=== PATIENT | male | born 1980 | race Two or more races ===

== ENCOUNTER 2019-01-04 11:21 | Inpatient (IN) | payer SELFPAY ==
--- NOTE | 2019-01-04 12:06 | ER Document Report ---
ED Medical Screen (RME) - General Chief Complaint: Abdominal Pain Stated Complaint: ABDOMINAL PAIN Time Seen by Provider: 01/04/19 11:57 Mode of Arrival: Ambulatory Information source: Patient Notes: 38-year-old male presented to ED for complaint of abdominal pain upper abdominal pain. He went to a recent visit with the doctor and they told him there was something wrong with his body and he needed to come to the emergency room. He states he thinks that his pancreas. He states when he drinks water sometimes the pain is like a pressure sometimes is much sharper sometimes it comes and go es. He states right now it is a stabbing pain. He states right now it is a 3 out of 5. Patient states he drinks 1 beer that is the equivalent of 3 each afternoon. Does not smoke for the last 2 months he states he has not had any illicit drugs for about 3 months. 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 A comprehensive ED assessment and evaluation of the patient, analysis of test results and completion of medical decision making process will be conducted by an additional ED providers. Past Medical History - Social History Chew tobacco use (# tins/day): No Frequency of alcohol use: None Drug Abuse: None Physical Exam - Vital signs Vitals: Temp Pulse Resp BP Pulse Ox 98.3 F 123 H 16 125/82 96 01/04/19 11:29 01/04/19 11:29 01/04/19 11:29 01/04/19 11:29 01/04/19 11:29 Course - Vital Signs Vital signs: Temp Pulse Resp BP Pulse Ox 98.3 F 123 H 16 125/82 96 01/04/19 11:29 01/04/19 11:29 01/04/19 11:29 01/04/19 11:29 01/04/19 11:29
[2019-01-04 13:01] LABS: HEMATOCRIT 42.8 % (37.9-51.0)
[2019-01-04 13:05] LABS: APPEARANCE,URINE CLEAR; BILIRUBIN,URINE NEGATIVE (NEGATIVE); COLOR,URINE YELLOW; GLUCOSE, URINE >=500 mg/dL (NEGATIVE); KETONES,URINE 20 mg/dL (NEGATIVE); PROTEIN,URINE 30 mg/dL (NEGATIVE); URINE SPECIFIC GRAVITY 1.031; UROBILINOGEN,URINE NEGATIVE mg/dL (<2.0)
[2019-01-04 13:07] LABS: HEMOGLOBIN 14.7 g/dL (13.5-17.0); MEAN CORPUSCULAR HEMOGLOBIN 34.3 pg (27.0-33.4); MEAN CORPUSCULAR HGB CONC 34.3 g/dL (32.0-36.0); MEAN CORPUSCULAR VOLUME 100 fl (80-97); PLATELET COUNT 122 10^3/uL (150-450); RED BLOOD COUNT 4.28 10^6/uL (4.35-5.55); RED CELL DISTRIBUTION WIDTH 14.3 % (11.5-14.0); WHITE BLOOD COUNT 16.8 10^3/uL (4.0-10.5)
[2019-01-04 13:20] LABS: ALBUMIN 3.5 g/dL (3.5-5.0); ALKALINE PHOSPHATASE 177 U/L (38-126); ANION GAP 14 (5-19); ASPARTATE AMINO TRANSFERASE 55 U/L (17-59); BILIRUBIN,DIRECT 1.4 mg/dL (0.0-0.4); BILIRUBIN,TOTAL 2.2 mg/dL (0.2-1.3); BLOOD UREA NITROGEN 11 mg/dL (7-20); CARBON DIOXIDE 26 mmol/L (22-30); CHLORIDE 91 mmol/L (98-107); POTASSIUM 4.1 mmol/L (3.6-5.0); URINE AMPHETAMINES SCREEN NEGATIVE; URINE BARBITURATES SCREEN NEGATIVE; URINE BENZODIAZEPINES SCREEN NEGATIVE; URINE COCAINE SCREEN NEGATIVE; URINE MARIJUANA (THC) SCREEN NEGATIVE; URINE METHADONE SCREEN NEGATIVE; URINE PHENCYCLIDINE SCREEN NEGATIVE
[2019-01-04 13:33] LABS: CALCIUM 6.6 mg/dL (8.4-10.2); GLUCOSE 601 mg/dL (75-110)
[2019-01-04 13:35] LABS: ABSOLUTE LYMPHOCYTES# (MANUAL) 2.2 10^3/uL (0.5-4.7); ABSOLUTE MONOCYTES # (MANUAL) 0.3 10^3/uL (0.1-1.4); BAND NEUTROPHILS % (MANUAL) 2 % (3-5); BASOPHILS % (MANUAL) 0 % (0-2); EOSINOPHILS % (MANUAL) 0 % (0-6); LYMPHOCYTES % (MANUAL) 13 % (13-45); MONOCYTES % (MANUAL) 2 % (3-13); SEGMENTED NEUTROPHILS % (MAN) 83 % (42-78); TOTAL CELLS COUNTED 100
[2019-01-04 13:36] LABS: ANISOCYTOSIS SLIGHT; PLATELET COMMENT DECREASED; PLATELET LARGE PRESENT; POLYCHROMASIA SLIGHT; TOXIC VACUOLATION PRESENT
[2019-01-04 14:11] LABS: VENOUS BLOOD BASE EXCESS 1.9 mmol/L; VENOUS BLOOD PCO2 39.1 mmHg (35-63); VENOUS BLOOD PH 7.44 (7.30-7.42)
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
[2019-01-04] MEDS ORDERED: MORPHINE SULFATE 10 MG/ML INJ IV ONE (14:20)
[2019-01-04] MEDS ORDERED: ONDANSETRON HCL INJ/PF 4 MG/2 ML SDV IV ONE (14:20)
[2019-01-04] MEDS ORDERED: INSULIN REG, HUMAN 100 UNIT/ML 3 ML VIAL (PYX) IV ONE (14:23)
[2019-01-04] MEDS ORDERED: CALCIUM GLUCONATE 1000 MG/10 ML INJ IV ONE (14:23)
[2019-01-04] MEDS ORDERED: NORMAL SALINE 1000 ML 1,000 ML IV ONE (14:24)
--- NOTE | 2019-01-04 15:24 | RADIOLOGY REPORT (SQ) ---
EXAM DESCRIPTION: CT ABD/PELVIS WITH IV ONLY COMPLETED DATE/TIME: 01/04/2019 3:14 pm REASON FOR STUDY: abd pain COMPARISON: None. TECHNIQUE: CT scan of the abdomen and pelvis performed using helical scanning technique with dynamic intravenous contrast injection. No oral contrast. Images reviewed with lung, soft tissue, and bone windows. Reconstructed coronal and sagittal MPR images reviewed. Delayed images for evaluation of the urinary system also acquired. All images stored on PACS. All CT scanners at this facility use dose modulation, iterative reconstruction, and/or weight based d osing when appropriate to reduce radiation dose to as low as reasonably achievable (ALARA). [facility]: Dose Right [facility]: CareDose [facility]: Dose Right [facility]: Teradose 4D [facility]: Docurated CONTRAST TYPE AND DOSE: contrast/concentration: Isovue 350.00 mg/ml; Total Contrast Delivered: 89.0 ml; Total Saline Delivered: 70.0 ml RENAL FUNCTION: GFR > 60. RADIATION DOSE: CT Rad equipment meets quality standard of care and radiation dose reduction techniq ues were employed. CTDIvol: 7.1 - 10.0 mGy. DLP: 966 mGy-cm.. LIMITATIONS: None. FINDINGS: LOWER CHEST: No significant findings. No nodules or infiltrates. LIVER: Normal size. Fatty change. No masses. No dilated ducts. SPLEEN: Normal size. No focal lesions. PANCREAS: Extensive inflammation in the lesser sac surrounding the pancreas. No mass, pseudoaneurysm or ductal dilatation. No necrosis. GALLBLADDER: No identified stones by CT criteria. No inflammatory changes to suggest cholecystitis. ADRENAL GLANDS: No significant masses or asymmetry. RIGHT KIDNEY AND URETER: No solid masses. No significant calcifications. No hydronephrosis or hyd roureter. LEFT KIDNEY AND URETER: No solid masses. No significant calcifications. No hydronephrosis or hydr oureter. AORTA AND VESSELS: No aneurysm. No dissection. Renal arteries, SMA, celiac without stenosis. RETROPERITONEUM: No retroperitoneal adenopathy, hemorrhage or masses. BOWEL AND PERITONEAL CAVITY: No obstruction. Small amount of free fluid in the right pericolic gutte r. No free air. APPENDIX: Normal. PELVIS: No mass. No free fluid. Normal bladder. ABDOMINAL WALL: No masses. No hernias. BONES: No significant or acute findings. OTHER: No other significant finding. IMPRESSION: Acute pancreatitis. TECHNICAL DOCUMENTATION: JOB ID: [id number] Quality ID # [id number]: Final reports with documentation of one or more dose reduction techniques (e.g., Au tomated exposure control, adjustment of the mA and/or kV according to patient size, use of iterative reconstruction technique) 2010 [employer]- All Rights Reserved Reading location - IP/workstation name: [email or web address]-
--- NOTE | 2019-01-04 17:03 | RADIOLOGY REPORT (SQ) ---
EXAM DESCRIPTION: U/S ABDOMEN LIMITED W/O DOP COMPLETED DATE/TIME: 01/04/2019 4:13 pm REASON FOR STUDY: RUQ pain , elevated LFT's COMPARISON: None. TECHNIQUE: Dynamic and static grayscale images acquired of the abdomen and recorded on PACS. Leanno roberta selected color Doppler and spectral images recorded. LIMITATIONS: None. FINDINGS: PANCREAS: Known peripancreatic edema and fluid not well appreciated. LIVER: Hepatic steatosis. No focal lesions. Hepatomegaly. LIVER VASCULATURE: Normal directional flow of the main portal vein and hepatic veins. GALLBLADDER: Non dependent echogenic focus within the gallbladder lumen measuring 6 mm, possibly adhe rent stone versus polyp. No wall thickening. ULTRASOUND-DETECTED ACUÑA'S SIGN: Negative. INTRAHEPATIC DUCTS AND COMMON DUCT: CBD and intrahepatic ducts normal caliber. No filling defects. INFERIOR VENA CAVA: Normal flow. AORTA: No aneurysm. RIGHT KIDNEY: Normal size measuring 12.4 cm. Normal echogenicity. No solid or suspicious masses. No hydronephrosis. No calcifications. PERITONEAL AND RIGHT PLEURAL SPACE: No ascites or effusions. OTHER: No other significant findings. IMPRESSION: 1. Single non dependent echogenic focus within the gallbladder lumen measuring 6 mm, po ssibly adherent stone versus gallbladder polyp. No additional stones identified. No evidence of acu te cholecystitis. 2. Known peripancreatic edema not well appreciated. 3. Hepatomegaly and hepatic steatosis. TECHNICAL DOCUMENTATION: JOB ID: [id number] [employer]- All Rights Reserved Reading location - IP/workstation name: [email or web address]
[2019-01-04] MEDS ORDERED: DEXTROSE 50%-WATER 25 GM/50 ML DISP.SYRIN IV PRN ×2 (17:42)
[2019-01-04] MEDS ORDERED: ONDANSETRON HCL INJ/PF 4 MG/2 ML SDV IV PRN (17:42)
[2019-01-04] MEDS ORDERED: TEMAZEPAM 15 MG CAPSULE PO PRN (17:42)
[2019-01-04] MEDS ORDERED: ACETAMINOPHEN 650 MG SUPP.RECT PR PRN (17:42)
[2019-01-04] MEDS ORDERED: DEXTROSE 40% GEL 15 GM TUBE PO PRN ×2 (17:42)
[2019-01-04] MEDS ORDERED: GLUCAGON,HUMAN RECOMB 1 MG INJ SUBCUT PRN (17:42)
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
[2019-01-04] MEDS: NORMAL SALINE 1000 ML 1,000 ML IV PRN (18:30)
[2019-01-04] MEDS: INSULIN REG, HUMAN 100 UNIT/ML 3 ML VIAL (PYX) SUBCUT SCH (18:32)
[2019-01-04] MEDS: MORPHINE SULFATE 10 MG/ML INJ IV PRN ×2 (18:34→22:26)
[2019-01-04] MEDS: PANTOPRAZOLE SODIUM 40 MG VIAL IV SCH (22:25)
[2019-01-04] MEDS: HEPARIN SOD (PORCINE) 5,000 UNIT/ML 1 ML VIAL SUBCUT SCH (22:26)
[2019-01-05] MEDS: NORMAL SALINE 1000 ML 1,000 ML IV PRN ×4 (00:36→16:07)
[2019-01-05] MEDS: INSULIN REG, HUMAN 100 UNIT/ML 3 ML VIAL (PYX) SUBCUT SCH ×4 (00:36→19:09)
[2019-01-05] MEDS: ACETAMINOPHEN 325 MG TABLET PO PRN ×3 (00:36→20:42)
[2019-01-05] MEDS: MORPHINE SULFATE 10 MG/ML INJ IV PRN ×4 (04:20→20:43)
[2019-01-05] MEDS: HEPARIN SOD (PORCINE) 5,000 UNIT/ML 1 ML VIAL SUBCUT SCH ×3 (05:35→22:16)
[2019-01-05 06:17] LABS: ABSOLUTE BASOPHILS # (AUTO) 0.1 10^3/uL (0.0-0.2); ABSOLUTE EOSINOPHILS # (AUTO) 0.1 10^3/uL (0.0-0.6); ABSOLUTE LYMPHOCYTES (AUTO) 1.5 10^3/uL (0.5-4.7); BASOPHILS % (AUTO) 0.4 % (0-2); EOSINOPHILS % (AUTO) 1.1 % (0-6); HEMATOCRIT 34.9 % (37.9-51.0); LYMPHOCYTES % (AUTO) 11.9 % (13-45); MEAN CORPUSCULAR HEMOGLOBIN 33.8 pg (27.0-33.4); MEAN CORPUSCULAR HGB CONC 34.9 g/dL (32.0-36.0); MEAN CORPUSCULAR VOLUME 97 fl (80-97); MONOCYTES % (AUTO) 7.8 % (3-13); PLATELET COUNT 122 10^3/uL (150-450); RED CELL DISTRIBUTION WIDTH 14.1 % (11.5-14.0); SEGMENTED NEUTROPHILS % (AUTO) 78.8 % (42-78); TOTAL CELLS COUNTED % (AUTO) 100 %; WHITE BLOOD COUNT 12.7 10^3/uL (4.0-10.5)
[2019-01-05 06:20] LABS: HEMOGLOBIN 12.2 g/dL (13.5-17.0)
[2019-01-05 06:29] LABS: ANION GAP 10 (5-19); BLOOD UREA NITROGEN 12 mg/dL (7-20); CARBON DIOXIDE 24 mmol/L (22-30); CHLORIDE 104 mmol/L (98-107); CHOLESTEROL 290.33 mg/dL (0-200); GLUCOSE 196 mg/dL (75-110); POTASSIUM 3.5 mmol/L (3.6-5.0)
[2019-01-05 06:43] LABS: DIRECT LDL < 30 mg/dL (<100); TRIGLYCERIDES 1063 mg/dL (<150)
[2019-01-05 06:44] LABS: CALCIUM 6.6 mg/dL (8.4-10.2)
[2019-01-05] MEDS: PANTOPRAZOLE SODIUM 40 MG VIAL IV SCH ×2 (10:21→22:22)
--- NOTE | 2019-01-05 11:57 | PDOC PROGRESS REPORT ---
Subjective Progress Note for:: 01/05/19 Subjective:: The patient appears to be comfortable. He still reports some tenderness in the abdomen. We discussed the possibility of clear liquids. Reason For Visit: ACUTE PNCREATITIS,NEW ONSET DIABETES MELLITUS WITH Physical Exam Vital Signs: Temp Pulse Resp BP Pulse Ox 98.4 F 100 16 173/95 H 94 01/05/19 10:26 01/05/19 08:46 01/05/19 08:46 01/05/19 08:46 01/05/19 08:46 Intake & Output 01/04/19 01/05/19 01/06/19 06:59 06:59 05:59 Intake Total 3000 993 Output Total 150 Balance 2850 993 Weight 77.8 kg General appearance: PRESENT: cooperative, mild distress, well-developed Head exam: PRESENT: atraumatic, normocephalic Ear exam: PRESENT: normal external ear exam. ABSENT: bleeding, drainage Mouth exam: PRESENT: moist, neck supple, tongue midline Respiratory exam: PRESENT: clear to auscultation ella, symmetrical, unlabored. ABSENT: prolonged expiratory phas, rales, rhonchi, tachypnea, wheezes Cardiovascular exam: PRESENT: RRR, +S1, +S2. ABSENT: diastolic murmur, systolic murmur GI/Abdominal exam: PRESENT: hypoactive bowel sounds, soft, tenderness - Mostly in the midepigastric area. ABSENT: distended, guarding Rectal exam: PRESENT: deferred Gentrourinary exam: ABSENT: indwelling catheter Extremities exam: PRESENT: full ROM. ABSENT: joint swelling, pedal edema Musculoskeletal exam: PRESENT: full ROM, normal inspection. ABSENT: deformity Neurological exam: PRESENT: alert, awake, oriented to person, oriented to place, oriented to time, oriented to situation, CN II-XII grossly intact Psychiatric exam: PRESENT: appropriate affect. ABSENT: agitated, anxious Focused psych exam: ABSENT: delusional, restlessness Skin exam: PRESENT: dry, normal color, warm. ABSENT: rash Results Laboratory Results: 01/05/19 05:50 01/05/19 05:50 01/04/19 01/04/19 01/04/19 12:45 12:45 12:45 WBC 16.8 H RBC 4.28 L Hgb 14.7 Hct 42.8 MCV 100 H MCH 34.3 H MCHC 34.3 RDW 14.3 H Plt Count 122 L Seg Neutrophils % Not Reportable VBG pH VBG pCO2 VBG HCO3 VBG Base Excess Sodium 131.2 L Potassium 4.1 Chloride 91 L Carbon Dioxide 26 Anion Gap 14 BUN 11 Creatinine 0.70 Est GFR ( Amer) > 60 Glucose 601 H* Lactic Acid Calcium 6.6 L* Magnesium Total Bilirubin 2.2 H AST 55 Alkaline Phosphatase 177 H Total Protein 7.0 Albumin 3.5 Triglycerides Cholesterol LDL Cholesterol Direct HDL Cholesterol Lipase 737.1 H Urine Color YELLOW Urine Appearance CLEAR Urine pH 6.0 Ur Specific [place] 1.031 Urine Protein 30 H Urine Glucose (UA) >=500 H Urine Ketones 20 H Urine Blood SMALL H 01/04/19 01/04/19 01/05/19 13:50 14:35 05:50 WBC 12.7 H RBC 3.60 L Hgb 12.2 L D Hct 34.9 L MCV 97 MCH 33.8 H MCHC 34.9 RDW 14.1 H Plt Count 122 L Seg Neutrophils % 78.8 H VBG pH 7.44 H VBG pCO2 39.1 VBG HCO3 26.0 VBG Base Excess 1.9 Sodium Potassium Chloride Carbon Dioxide Anion Gap BUN Creatinine Est GFR ( Amer) Glucose Lactic Acid 1.4 Calcium Magnesium Total Bilirubin AST Alkaline Phosphatase Total Protein Albumin Triglycerides Cholesterol LDL Cholesterol Direct HDL Cholesterol Lipase Urine Color Urine Appearance Urine pH Ur Specific [place] Urine Protein Urine Glucose (UA) Urine Ketones Urine Blood 01/05/19 05:50 WBC RBC Hgb Hct MCV MCH MCHC RDW Plt Count Seg Neutrophils % VBG pH VBG pCO2 VBG HCO3 VBG Base Excess Sodium 138.0 Potassium 3.5 L Chloride 104 Carbon Dioxide 24 Anion Gap 10 BUN 12 Creatinine 0.49 L Est GFR ( Amer) > 60 Glucose 196 H Lactic Acid Calcium 6.6 L* Magnesium 2.3 Total Bilirubin AST Alkaline Phosphatase Total Protein Albumin Triglycerides 1063 H Cholesterol 290.33 H LDL Cholesterol Direct < 30 HDL Cholesterol 33 L Lipase 525.0 H Urine Color Urine Appearance Urine pH Ur Specific [place] Urine Protein Urine Glucose (UA) Urine Ketones Urine Blood Impressions: Abdomen/Pelvis CT 01/04/19 14:12 IMPRESSION: Acute pancreatitis. Abdomen Ultrasound 01/04/19 14:16 IMPRESSION: 1. Single non dependent echogenic focus within the gallbladder lumen measuring 6 mm, possibly adherent stone versus gallbladder polyp. No tamanna tional stones identified. No evidence of acute cholecystitis. 2. Known peripancreatic edema not well appreciated. 3. Hepatomegaly and hepatic steatosis. Assessment and Plan - Diagnosis (1) Acute pancreatitis Qualifiers: Pancreatitis type: alcohol induced Acute pancreatitis complication: unspecified Qualified Code(s): K85.20 - Alcohol induced acute pancreatitis without necrosis or infection Is this a current diagnosis for this admission?: Yes Plan: 01/04/2019-the lipase is greater than 700. The patient will be given aggressive IV fluids. He will be n.p.o. except ice chips. We will recheck laboratory studies in the morning. If he is improved consider initiating oral diet. January 05, 2019-lipase is improved. The patient's triglyceride levels were greater than 1000 and so this could be a combined etiology for his pancreatitis. Because he was still having discomfort I am going to let him have ice chips but nothing else by mouth. Continue aggressive IV fluids. (2) Diabetes mellitus, new onset Is this a current diagnosis for this admission?: Yes Plan: 01/04/2019-there is a strong family history of diabetes. The patient has never had been told he was diabetic. His glucose will be checked every 6 hours while he is n.p.o. When he starts eating we will change it to before meals and at bedtime. He will have a regular insulin sliding scale. He will need to follow- up with a primary care provider post discharge. We will need to have a regimen prior to discharge. We may utilize metformin as an initial medication. I have requested hemoglobin A1c as well as lipids. January 05, 2019-hemoglobin A1c was 13.4. We are achieving good control with the insulin regimen. I will likely start the patient on metformin as an outpatient but he will need to establish with a primary care provider (possibly community care clinic) for a regimen moving forward. (3) Hypocalcemia Is this a current diagnosis for this admission?: Yes Plan: 01/04/2019-the patient did receive calcium gluconate. We will recheck his serum calcium and supplement accordingly. January 05, 2019-even with IV calcium gluconate yesterday the patient still has a low calcium. I have ordered another gram of calcium gluconate. Recheck laboratory studies tomorrow as well. (4) Hyperbilirubinemia Is this a current diagnosis for this admission?: Yes Plan: 01/04/2019-no evidence of gallstones. No dilated biliary ducts. Will recheck bilirubin in the morning. I expect it will normalize quickly. January 05, 2019-I will recheck the bilirubin tomorrow. (5) Hyperosmolar hyponatremia Is this a current diagnosis for this admission?: Yes Plan: 01/04/2019-as glucose improves, and with normal saline by intravenous, sodium should correct. We will recheck in the morning. January 05, 2019-serum potassium is normal. Continue to monitor. (6) Fatty liver Is this a current diagnosis for this admission?: Yes Plan: 01/04/2019-Per the CT scan the patient has fatty infiltration of the liver. This could be result of alcohol use. I have ordered a lipid panel in addition to other blood work for the morning. January 05, 2019-Marked abnormalities with lipid panel. Will need to initiate treatment and low fat diet. (7) Hyperlipidemia associated with type 2 diabetes mellitus Is this a current diagnosis for this admission?: Yes Plan: January 05, 2019-please see the lipid profile. The patient has marked hyper triglyceridemia (1063) and total cholesterol (290). Will need to initiate treatment. No medications today due to his n.p.o. status. Will need close follow-up as an outpatient. - Time Time Spent with patient: 15-24 minutes Medications reviewed and adjusted accordingly: Yes Anticipated discharge: Home
[2019-01-05] MEDS ORDERED: MORPHINE SULFATE 10 MG/ML INJ IV ONE (18:00)
[2019-01-05] MEDS ORDERED: CALCIUM GLUCONATE 1000 MG/10 ML INJ IV ONE (19:30)
[2019-01-05] MEDS ORDERED: POTASSI CL 20 MEQ/50 ML RIDER 20 MEQ/50 ML RTUPB IV ONE (19:30)
[2019-01-06] MEDS: INSULIN REG, HUMAN 100 UNIT/ML 3 ML VIAL (PYX) SUBCUT SCH ×3 (00:52→12:30)
[2019-01-06] MEDS: MORPHINE SULFATE 10 MG/ML INJ IV PRN ×3 (00:53→10:33)
[2019-01-06] MEDS: NORMAL SALINE 1000 ML 1,000 ML IV PRN ×3 (00:56→10:26)
[2019-01-06] MEDS: ACETAMINOPHEN 325 MG TABLET PO PRN ×2 (02:37→13:09)
[2019-01-06] MEDS: HEPARIN SOD (PORCINE) 5,000 UNIT/ML 1 ML VIAL SUBCUT SCH ×2 (05:10→13:05)
[2019-01-06 06:40] LABS: HEMATOCRIT 36.8 % (37.9-51.0); HEMOGLOBIN 12.6 g/dL (13.5-17.0); MEAN CORPUSCULAR HEMOGLOBIN 33.2 pg (27.0-33.4); MEAN CORPUSCULAR HGB CONC 34.1 g/dL (32.0-36.0); MEAN CORPUSCULAR VOLUME 97 fl (80-97); PLATELET COUNT 158 10^3/uL (150-450); RED BLOOD COUNT 3.78 10^6/uL (4.35-5.55); RED CELL DISTRIBUTION WIDTH 14.2 % (11.5-14.0); WHITE BLOOD COUNT 11.1 10^3/uL (4.0-10.5)
[2019-01-06 06:52] LABS: ALKALINE PHOSPHATASE 117 U/L (38-126); ANION GAP 12 (5-19); ASPARTATE AMINO TRANSFERASE 47 U/L (17-59); BILIRUBIN,TOTAL 1.8 mg/dL (0.2-1.3); BLOOD UREA NITROGEN 10 mg/dL (7-20); CALCIUM 7.9 mg/dL (8.4-10.2); CARBON DIOXIDE 25 mmol/L (22-30); CHLORIDE 100 mmol/L (98-107); GLUCOSE 177 mg/dL (75-110); POTASSIUM 3.4 mmol/L (3.6-5.0); TOTAL PROTEIN 6.1 g/dL (6.3-8.2)
[2019-01-06 07:22] LABS: ABSOLUTE LYMPHOCYTES# (MANUAL) 1.3 10^3/uL (0.5-4.7); BAND NEUTROPHILS % (MANUAL) 3 % (3-5); BASOPHILS % (MANUAL) 0 % (0-2); EOSINOPHILS % (MANUAL) 4 % (0-6); LYMPHOCYTES % (MANUAL) 12 % (13-45); MONOCYTES % (MANUAL) 9 % (3-13); SEGMENTED NEUTROPHILS % (MAN) 72 % (42-78); TOTAL CELLS COUNTED 100
[2019-01-06 07:23] LABS: ANISOCYTOSIS SLIGHT; PLATELET COMMENT ADEQUATE
[2019-01-06] MEDS: PANTOPRAZOLE SODIUM 40 MG VIAL IV SCH (10:26)
--- NOTE | 2019-01-06 14:13 | PDOC DISCHARGE SUMMARY ---
Impression - Admit/DC Date/PCP Admission Date/Primary Care Provider: 01/04/19 17:20 Discharge Date: 01/06/19 - Discharge Diagnosis (1) Acute pancreatitis Is this a current diagnosis for this admission?: Yes (2) Diabetes mellitus, new onset Is this a current diagnosis for this admission?: Yes (3) Hypocalcemia Is this a current diagnosis for this admission?: Yes (4) Hyperbilirubinemia Is this a current diagnosis for this admission?: Yes (5) Hyperosmolar hyponatremia Is this a current diagnosis for this admission?: Yes (6) Fatty liver Is this a current diagnosis for this admission?: Yes (7) Hyperlipidemia associated with type 2 diabetes mellitus Is this a current diagnosis for this admission?: Yes - Additional Information Resuscitation Status: Full Code Discharge Diet: Cardiac, Diabetic Discharge Activity: Activity As Tolerated Referrals: [facility] [Outside] (Follow-up for new onset diabetes, hypertriglyceridemia and hypertension) Prescriptions: Fenofibrate,Micronized [Fenofibrate] 43 mg PO DAILY 14 Days #14 capsule Lisinopril/Hydrochlorothiazide [Lisinopril-Hctz 10-12.5 mg Tab] 1 each PO DAILY 14 Days #14 tablet Metformin HCl [Metformin HCl ER] 750 mg PO BID 14 Days #28 tab.er.24h Home Medications: Fenofibrate,Micronized [Fenofibrate] 43 mg PO DAILY 14 Days #14 capsule 01/06/19 Lisinopril/Hydrochlorothiazide [Lisinopril-Hctz 10-12.5 mg Tab] 1 each PO DAILY 14 Days #14 tablet 01/06/19 Metformin HCl [Metformin HCl ER] 750 mg PO BID 14 Days #28 tab.er.24h 01/06/19 History of Present Illiness History of Present Illness: ALVA CHINCHILLA is a 38 year old male who has been having increased abdominal pain for approximately 5 days. He denies nausea and vomiting. He occasionally gets diaphoretic. It has suppressed his appetite. Nothing like this is happened before. Evaluation in the emergency department revealed an elevated lipase, hyperglycemia (strong family history of diabetes) and imaging studies to suggest pancreatitis. The patient was referred to the hospital service for admission. Hospital Course Hospital Course: The patient had an unremarkable hospital course. With sliding scale insulin his glucose improved significantly. His markedly increased triglycerides also improved with better control of his sugar. He was getting aggressive IV fluids. He had hypertension on admission and with all of the fluids it went up slightly but is somewhat labile. At discharge he will be on new medications for diabetes, triglycerides and hypertension. Physical Exam Vital Signs: Temp Pulse Resp BP Pulse Ox 99.1 F 105 H 16 156/100 H 91 L 01/06/19 11:34 01/06/19 11:34 01/06/19 11:34 01/06/19 11:34 01/06/19 11:34 Intake & Output 01/05/19 01/06/19 01/07/19 07:59 06:59 06:59 Intake Total 1280 Output Total 600 Balance 680 Weight General appearance: PRESENT: cooperative, mild distress, well-developed Head exam: PRESENT: atraumatic, normocephalic Eye exam: PRESENT: scleral icterus Ear exam: PRESENT: normal external ear exam. ABSENT: bleeding, drainage Mouth exam: PRESENT: moist, tongue midline Respiratory exam: PRESENT: clear to auscultation ella, symmetrical, unlabored. ABSENT: rales, rhonchi, tachypnea, wheezes Cardiovascular exam: PRESENT: RRR, +S1, +S2. ABSENT: systolic murmur GI/Abdominal exam: PRESENT: normal bowel sounds, soft, tenderness - Still has some epigastric tenderness but improved. ABSENT: distended Rectal exam: PRESENT: deferred Gentrourinary exam: ABSENT: indwelling catheter Extremities exam: ABSENT: joint swelling, pedal edema Musculoskeletal exam: PRESENT: ambulatory, full ROM. ABSENT: deformity Neurological exam: PRESENT: alert, awake, oriented to person, oriented to place, oriented to time, oriented to situation, CN II-XII grossly intact Psychiatric exam: PRESENT: appropriate affect. ABSENT: agitated, anxious Focused psych exam: PRESENT: catatonic. ABSENT: delusional, restlessness Results Laboratory Results: WBC 11.1 10^3/uL (4.0-10.5) H 01/06/19 06:09 RBC 3.78 10^6/uL (4.35-5.55) L 01/06/19 06:09 Hgb 12.6 g/dL (13.5-17.0) L 01/06/19 06:09 Hct 36.8 % (37.9-51.0) L 01/06/19 06:09 MCV 97 fl (80-97) 01/06/19 06:09 MCH 33.2 pg (27.0-33.4) 01/06/19 06:09 MCHC 34.1 g/dL (32.0-36.0) 01/06/19 06:09 RDW 14.2 % (11.5-14.0) H 01/06/19 06:09 Plt Count 158 10^3/uL (150-450) 01/06/19 06:09 Lymph % (Auto) Not Reportable 01/06/19 06:09 [place] % (Auto) Not Reportable 01/06/19 06:09 Eos % (Auto) Not Reportable 01/06/19 06:09 Baso % (Auto) Not Reportable 01/06/19 06:09 Absolute Neuts (auto) Not Reportable 01/06/19 06:09 Absolute Lymphs (auto) Not Reportable 01/06/19 06:09 Absolute Monos (auto) Not Reportable 01/06/19 06:09 Absolute Eos (auto) Not Reportable 01/06/19 06:09 Absolute Basos (auto) Not Reportable 01/06/19 06:09 Total Counted 100 01/06/19 06:09 Seg Neutrophils % Not Reportable 01/06/19 06:09 Seg Neuts % (Manual) 72 % (42-78) 01/06/19 06:09 Band Neutrophils % 3 % (3-5) 01/06/19 06:09 Lymphocytes % (Manual) 12 % (13-45) L 01/06/19 06:09 Monocytes % (Manual) 9 % (3-13) 01/06/19 06:09 Eosinophils % (Manual) 4 % (0-6) 01/06/19 06:09 Basophils % (Manual) 0 % (0-2) 01/06/19 06:09 Abs Neuts (Manual) 8.3 10^3/uL (1.7-8.2) H 01/06/19 06:09 Abs Lymphs (Manual) 1.3 10^3/uL (0.5-4.7) 01/06/19 06:09 Abs Monocytes (Manual) 1.0 10^3/uL (0.1-1.4) 01/06/19 06:09 Absolute Eos (Manual) 0.4 10^3/uL (0.0-0.6) 01/06/19 06:09 Abs Basophils (Manual) 0.0 10^3/uL (0.0-0.2) 01/06/19 06:09 Toxic Vacuolation PRESENT 01/04/19 12:45 Large Platelets PRESENT 01/04/19 12:45 Platelet Comment ADEQUATE 01/06/19 06:09 Polychromasia SLIGHT 01/04/19 12:45 Anisocytosis SLIGHT 01/06/19 06:09 Macrocytosis 1+ 01/04/19 12:45 VBG pH 7.44 (7.30-7.42) H 01/04/19 13:50 VBG pCO2 39.1 mmHg (35-63) 01/04/19 13:50 VBG HCO3 26.0 mmol/L (20-32) 01/04/19 13:50 VBG Base Excess 1.9 mmol/L 01/04/19 13:50 Sodium 136.5 mmol/L (137-145) L 01/06/19 06:09 Potassium 3.4 mmol/L (3.6-5.0) L 01/06/19 06:09 Chloride 100 mmol/L (98-107) 01/06/19 06:09 Carbon Dioxide 25 mmol/L (22-30) 01/06/19 06:09 Anion Gap 12 (5-19) 01/06/19 06:09 BUN 10 mg/dL (7-20) 01/06/19 06:09 Creatinine 0.49 mg/dL (0.52-1.25) L 01/06/19 06:09 Est GFR ( Amer) > 60 (>60) 01/06/19 06:09 Est GFR (MDRD) Non-Af > 60 (>60) 01/06/19 06:09 Glucose 177 mg/dL (75-110) H 01/06/19 06:09 POC Glucose 165 mg/dL (70-110) H 01/06/19 11:40 Hemoglobin A1c % 13.6 % (4.7-6.0) H 01/04/19 12:45 Lactic Acid 1.4 mmol/L (0.7-2.1) 01/04/19 14:35 Calcium 7.9 mg/dL (8.4-10.2) L 01/06/19 06:09 Magnesium 1.8 mg/dL (1.6-2.3) 01/06/19 06:09 Total Bilirubin 1.8 mg/dL (0.2-1.3) H 01/06/19 06:09 Direct Bilirubin 1.0 mg/dL (0.0-0.4) H 01/06/19 06:09 Neonat Total Bilirubin Not Reportable 01/06/19 06:09 Neonat Direct Bilirubin Not Reportable 01/06/19 06:09 Neonat Indirect Bili Not Reportable 01/06/19 06:09 AST 47 U/L (17-59) 01/06/19 06:09 ALT 35 U/L (<50) 01/06/19 06:09 Alkaline Phosphatase 117 U/L (38-126) 01/06/19 06:09 Total Protein 6.1 g/dL (6.3-8.2) L 01/06/19 06:09 Albumin 3.0 g/dL (3.5-5.0) L 01/06/19 06:09 Triglycerides 700 mg/dL (<150) H 01/06/19 06:09 Cholesterol 290.33 mg/dL (0-200) H 01/05/19 05:50 LDL Cholesterol Direct < 30 mg/dL (<100) 01/05/19 05:50 VLDL Cholesterol, Calc UNABLE TO CALCULATE 01/05/19 05:50 HDL Cholesterol 33 mg/dL (>40) L 01/05/19 05:50 Lipase 343.6 U/L (23-300) H 01/06/19 06:09 Urine Color YELLOW 01/04/19 12:45 Urine Appearance CLEAR 01/04/19 12:45 Urine pH 6.0 (5.0-9.0) 01/04/19 12:45 Ur Specific [place] 1.031 01/04/19 12:45 Urine Protein 30 mg/dL (NEGATIVE) H 01/04/19 12:45 Urine Glucose (UA) >=500 mg/dL (NEGATIVE) H 01/04/19 12:45 Urine Ketones 20 mg/dL (NEGATIVE) H 01/04/19 12:45 Urine Blood SMALL (NEGATIVE) H 01/04/19 12:45 Urine Nitrite (Reflex) NEGATIVE (NEGATIVE) 01/04/19 12:45 Urine Bilirubin NEGATIVE (NEGATIVE) 01/04/19 12:45 Urine Urobilinogen NEGATIVE mg/dL (<2.0) 01/04/19 12:45 Leukocyte Esterase Rfl NEGATIVE (NEGATIVE) 01/04/19 12:45 Urine Ascorbic Acid NEGATIVE (NEGATIVE) 01/04/19 12:45 Urine Opiates Screen NEGATIVE 01/04/19 12:45 Urine Methadone Screen NEGATIVE 01/04/19 12:45 Ur Barbiturates Screen NEGATIVE 01/04/19 12:45 Ur Phencyclidine Scrn NEGATIVE 01/04/19 12:45 Ur Amphetamines Screen NEGATIVE 01/04/19 12:45 U Benzodiazepines Scrn NEGATIVE 01/04/19 12:45 Urine Cocaine Screen NEGATIVE 01/04/19 12:45 U Marijuana (THC) Screen NEGATIVE 01/04/19 12:45 Impressions: Abdomen/Pelvis CT 01/04/19 14:12 IMPRESSION: Acute pancreatitis. Abdomen Ultrasound 01/04/19 14:16 IMPRESSION: 1. Single non dependent echogenic focus within the gallbladder lumen measuring 6 mm, possibly adherent stone versus gallbladder polyp. No additional stones identified. No evidence of acute cholecystitis. 2. Known peripancreatic edema not well appreciated. 3. Hepatomegaly and hepatic steatosis. Plan Health Concerns: New onset diabetes, marked hypertriglyceridemia and hypertension Plan of Treatment: For diabetes mellitus-as this is a new diagnosis and the patient is not familiar with insulin I have opted to start him on metformin 750 mg twice daily. This should exert some control and when he establishes with a primary provider they could implement the regimen that they can follow. We are going to try and set [facility] within the next week. For hypertension-some of his elevated blood pressure is due to discomfort and some due to the aggressive hydration. I am going to start him on lisinopril with hydrochlorothiazide. The RAMIREZ inhibitor will benefit his diabetes as well. Hypertriglyceridemia-as he has very elevated triglycerides I will start him on TriCor initially. At some point he will need to be on statin therapy. I am trying to be conservative as he has no insurance at this time. Pancreatitis-this was most likely due to alcohol but his markedly elevated trig lyceride certainly contributed. He needs to abstain from alcohol completely. He should advance his diet slowly and follow[facility]. Goals: Good control of diabetes and blood pressure. Improved lipid panel with eventual addition of statin therapy. Alcohol cessation. Time Spent: Greater than 30 Minutes Stroke Is this a Stroke Patient?: No Acute Heart Failure - Is this a Heart Failure Patient?: No
[2019-01-06] MEDS ORDERED: INFLUENZA QUAD (6MOS+) 2019-20 VAC 0.5 ML SYR IM ONE (14:29)
[2019-01-06 14:35] VITALS: BP 173/95
== END 2019-01-06 15:16 | disposition home or self-care (01) | DRG 439 ==
LOC: ER 11:21 → EH 17:20 → 4S 19:50
PROVIDERS: ADMIT Hospitalist; ATTEND Hospitalist
PROC: 3E0234Z Introduction of Serum, Toxoid and Vaccine into Muscle, Percutaneous Approach (ICD-10-PCS; principal; 2019-01-06)
DX: K85.20 Alcohol induced acute pancreatitis without necrosis or infection (principal); E87.1 Hypo-osmolality and hyponatremia; E83.51 Hypocalcemia; E78.5 Hyperlipidemia, unspecified; E78.1 Pure hyperglyceridemia; E11.8 Type 2 diabetes mellitus with unspecified complications; E80.6 Other disorders of bilirubin metabolism; K70.0 Alcoholic fatty liver; F10.10 Alcohol abuse, uncomplicated; Y90.9 Presence of alcohol in blood, level not specified; Z23 Encounter for immunization
CPT/HCPCS: 36415; 74177; 76705; 80048; 80053; 80061; 80076; 80307; 81001; 82803; 82962; 83036; 83605; 83690; 83735; 84478; 85025; 87040; 90686; 96361; 96374; 96375; 99285; C9113; J0610; J1815; J2270; J2405; J3480; J3490; J7030